=== PATIENT | male | born 2000 | race Caucasian/White ===

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

== ENCOUNTER → 2019-02-19 | Outpatient (CLI) | payer BC ==
[~2019-02-19] MED LIST changes: +ABILIFY5 MG PO; +DESYREL 100MG100 MG PO; +EFFEXOR-XR150 MG PO; +LEVEMIR100 U/ML SQ; +NOVOLOG 100U100 U/M1 SQ
== END ==
LOC: BHSO 14:57
DX: F43.10 Post-traumatic stress disorder, unspecified (principal)

== ENCOUNTER → 2019-10-13 | Outpatient (CLI) | payer BC | LOC: COL.LAB 08:50 | DX: J02.9 Acute pharyngitis, unspecified (principal); R19.7 Diarrhea, unspecified; Z20.828 Contact with and (suspected) exposure to other viral communicable diseases ==

== ENCOUNTER 2021-05-26 14:32 | Outpatient (RCR) | payer OTHER | END 2021-05-29 | disposition home or self-care (01) | LOC: WSOH | DX: S83.005D Unspecified dislocation of left patella, subsequent encounter (principal); E11.9 Type 2 diabetes mellitus without complications; Z90.89 Acquired absence of other organs; Z98.890 Other specified postprocedural states; Y99.0 Civilian activity done for income or pay ==

== ENCOUNTER 2021-06-09 14:41 | Outpatient (RCR) | payer OTHER | END 2021-06-29 | disposition home or self-care (01) | LOC: WSOH | DX: S83.005D Unspecified dislocation of left patella, subsequent encounter (principal); Y99.0 Civilian activity done for income or pay; E11.9 Type 2 diabetes mellitus without complications; Z90.89 Acquired absence of other organs; Z98.890 Other specified postprocedural states ==

== ENCOUNTER → 2021-06-30 09:44 | Outpatient (RCR) | payer OTHER | LOC: WSOH 00:31 | DX: M25.569 Pain in unspecified knee (principal); Y99.0 Civilian activity done for income or pay ==